=== PATIENT | male | born 1995 ===

== ENCOUNTER 2017-01-02 16:19 | Emergency (ER) | payer SELFPAY ==
[~2017-01-02] VITALS: Ht 157.5 cm; Wt 67.0 kg
[2017-01-02 16:29] VITALS: Ht 157.5 cm; Wt 67.0 kg
== END 2017-01-02 18:33 | disposition left against medical advice (07) ==
LOC: FTE 16:19
DX: Z53.21 Procedure and treatment not carried out due to patient leaving prior to being seen by health care provider (principal)